=== PATIENT | female | born 1995 | race Caucasian/White ===

== ENCOUNTER 2023-11-17 08:45 | Emergency (ER) | payer SELFPAY ==
[2023-11-17] MEDS: Acetaminophen 500 MG Tab PO ONE (09:28)
== END 2023-11-17 10:21 | disposition home or self-care (01) ==
LOC: MW.ED 08:45
DX: H92.09 Otalgia, unspecified ear (principal); Z88.5 Allergy status to narcotic agent; Z88.8 Allergy status to other drugs, medicaments and biological substances; Z87.891 Personal history of nicotine dependence
CPT/HCPCS: 81025; 99283; A9270